=== PATIENT | female | born 1940 ===

== ENCOUNTER 2017-11-10 06:15 | Day surgery (SDC) | payer OTHER ==
[~2017-11-10 06:15] MED LIST: GLIPIZIDE10 MG PO; GLUMETZA1000 MG PO; INTESTINEX680 MG PO; PERCOCET 5/3251 TAB PO; SYNTHROID50 MCG PO
== END 2017-11-10 11:25 | disposition home or self-care (01) ==
LOC: AMB-ENDOS 06:15
DX: K92.1 Melena (principal); Z85.038 Personal history of other malignant neoplasm of large intestine

== ENCOUNTER 2018-05-22 07:07 | Outpatient (CLI) | payer OTHER | END 2018-05-22 07:30 | disposition home or self-care (01) | LOC: LAB 07:07 | DX: Z80.3 Family history of malignant neoplasm of breast (principal); C18.7 Malignant neoplasm of sigmoid colon; D51.1 Vitamin B12 deficiency anemia due to selective vitamin B12 malabsorption with proteinuria; E11.9 Type 2 diabetes mellitus without complications; I10 Essential (primary) hypertension; E03.8 Other specified hypothyroidism; R97.0 Elevated carcinoembryonic antigen [CEA]; D50.8 Other iron deficiency anemias; D51.8 Other vitamin B12 deficiency anemias; D51.0 Vitamin B12 deficiency anemia due to intrinsic factor deficiency; E06.3 Autoimmune thyroiditis ==

== ENCOUNTER 2022-02-14 09:39 | Emergency (ER) | payer OTHER ==
[~2022-02-14] VITALS: Ht 157.5 cm; Wt 47.6 kg
[2022-02-14] MEDS ORDERED: BRILINTA90 MG PO (09:49)
[2022-02-14] MEDS ORDERED: ZESTRIL20 MG PO (09:49)
[2022-02-14] MEDS ORDERED: CLONAZEPAM0.5 MG PO (09:49)
[2022-02-14] MEDS ORDERED: CARVEDILOL12.5 MG PO (09:50)
== END 2022-02-14 11:13 | disposition home or self-care (01) ==
LOC: ER 09:39
DX: I10 Essential (primary) hypertension (principal); Z88.0 Allergy status to penicillin; E11.9 Type 2 diabetes mellitus without complications; Z79.84 Long term (current) use of oral hypoglycemic drugs; I49.9 Cardiac arrhythmia, unspecified